=== PATIENT | female | born 1990 | race Caucasian/White ===

== ENCOUNTER 2018-05-17 16:21 | Emergency (ER) | payer OTHER ==
[~2018-05-17] VITALS: Ht 179.1 cm; Wt 90.7 kg
--- NOTE | 2018-05-17 18:14 | PHYS DOC ---
Past History Past Medical History: DVT, Ovarian Cyst, Other Past Surgical History: Appendectomy, Tonsillectomy, Other Smoking: Non-smoker Alcohol Use: None Drug Use: None Adult General Chief Complaint Chief Complaint: COUGH HPI HPI 28-year-old female presents with cough, congestion, postnasal drip for 1 week. She was seen by her PCP several days ago and diagnosed with a viral URI. 2 other family members are diagnosed patient presents today because she is not getting better. She is concerned that the cough is worsening. She denies fever or chills. She denies shortness of breath. The cough is nonproductive. Review of Systems Review of Systems Constitutional: Denies fever or chills [] Eyes: Denies change in visual acuity, redness, or eye pain [] HENT: Nasal congestion[] Respiratory: Cough without shortness of breath [] Cardiovascular: No additional information not addressed in HPI [] GI: Denies abdominal pain, nausea, vomiting, bloody stools or diarrhea [] : Denies dysuria or hematuria [] Musculoskeletal: Denies back pain or joint pain [] Integument: Denies rash or skin lesions [] Neurologic: Denies headache, focal weakness or sensory changes [] Endocrine: Denies polyuria or polydipsia [] All other systems were reviewed and found to be within normal limits, except as documented in this note. Allergies Allergies Allergies Coded Allergies Type Severity Reaction Last Updated Verified Erythromycin Base Allergy Severe Anaphylaxis 05/01/14 Yes Sulfa (Sulfonamide Antibiotics) Allergy Severe Anaphylaxis 05/01/14 Yes doxycycline Allergy Severe throat closes 05/01/14 Yes ibuprofen Allergy Severe throat closes 05/01/14 Yes drospirenone Allergy Mild rash 05/01/14 Yes ethinyl estradiol Allergy Mild rash 05/01/14 Yes hydrocodone bitartrate Allergy Mild N/V 05/01/14 Yes hydrocodone Allergy Unknown rash 05/01/14 Yes Physical Exam Physical Exam Constitutional: Well developed, well nourished, no acute distress, non-toxic appearance. [] HENT: Normocephalic, atraumatic, bilateral external ears normal, oropharynx moist, postnasal drip no oral exudates, nose congested[] Eyes: PERRLA, EOMI, conjunctiva normal, no discharge. [] Neck: Normal range of motion, no tenderness, supple, no stridor. [] Cardiovascular:Heart rate regular rhythm, no murmur [] Lungs & Thorax: Bilateral breath sounds clear to auscultation [] Abdomen: Bowel sounds normal, soft, no tenderness, no masses, no pulsatile masses. [] Skin: Warm, dry, no erythema, no rash. [] Back: No tenderness, no CVA tenderness. [] Extremities: No tenderness, no cyanosis, no clubbing, ROM intact, no edema. [] Neurologic: Alert and oriented X 3, normal motor function, normal sensory function, no focal deficits noted. [] Psychologic: Affect normal, judgement normal, mood normal. [] Current Patient Data Vital Signs Vital Signs Date Time Temp Pulse Resp B/P (MAP) Pulse Ox O2 Delivery O2 Flow Rate FiO2 05/17/18 16:50 98.2 79 18 98 Room Air EKG EKG [] Radiology/Procedures Radiology/Procedures [] Course & Med Decision Making Course & Med Decision Making Pertinent Labs and Imaging studies reviewed. (See chart for details) I do not see any evidence of a bacterial infection. The patient is still suffering from a viral illness that has to take its course. I informed her of this and the fact that there is no specific medication that will make it go away faster. She is stable for discharge at this time. [] Dragon Disclaimer Dragon Disclaimer This electronic medical record was generated, in whole or in part, using a voice recognition dictation system. Departure Departure: Referrals: PCP,JULIÁN (PCP) Scripts No Active Prescriptions or Reported Meds GRAYSON PIERCE DO May 17, 2018 18:14
[2018-05-17 18:15] VITALS: BP 126/76
== END 2018-05-17 18:27 | disposition home or self-care (01) ==
LOC: ER 16:21
DX: B34.9 Viral infection, unspecified (principal); Z86.718 Personal history of other venous thrombosis and embolism; Z88.1 Allergy status to other antibiotic agents; Z88.2 Allergy status to sulfonamides; Z88.6 Allergy status to analgesic agent; Z88.5 Allergy status to narcotic agent; Z88.8 Allergy status to other drugs, medicaments and biological substances
CPT/HCPCS: 99281

== ENCOUNTER 2018-06-19 16:17 | Emergency (ER) | payer OTHER ==
[~2018-06-19] VITALS: Ht 180.3 cm; Wt 90.7 kg
[2018-06-19] MEDS ORDERED: IV NORMAL SALINE 1,000ML 1,000 ML IV ONE (17:00)
[2018-06-19] MEDS ORDERED: ONDANSETRON PF 4 MG/2 ML VIAL. IV ONE (17:15)
--- NOTE | 2018-06-19 17:48 | PHYS DOC ---
Past History Past Medical History: DVT, Ovarian Cyst, Other Past Surgical History: Appendectomy, Tonsillectomy, Other Smoking: Non-smoker Alcohol Use: None Drug Use: None Adult General Chief Complaint Chief Complaint: NAUSEA/VOMITING/DIARRHEA HPI HPI 28-year-old female presents with one-day history of vomiting and diarrhea. Patient states she has had very watery stools every hour today. She had several episodes of vomiting. She felt "bad" yesterday, but was not having vomiting and diarrhea. Patient is unable to keep down any liquids or solids. She is unsure if she has had a fever. Review of Systems Review of Systems Constitutional: Denies fever or chills [] Eyes: Denies change in visual acuity, redness, or eye pain [] HENT: Denies nasal congestion or sore throat [] Respiratory: Denies cough or shortness of breath [] Cardiovascular: No additional information not addressed in HPI [] GI: abdominal pain, nausea, vomiting, diarrhea [] : Denies dysuria or hematuria [] Musculoskeletal: Denies back pain or joint pain [] Integument: Denies rash or skin lesions [] Neurologic: Denies headache, focal weakness or sensory changes [] Endocrine: Denies polyuria or polydipsia [] All other systems were reviewed and found to be within normal limits, except as documented in this note. Current Medications Current Medications Current Medications Medications (Trade) Dose Ordered Sig/Mackenzie Start Time Stop Time Status Last Admin Dose Admin Ondansetron HCl (Zofran) 4 mg 1X ONCE 06/19/18 17:15 06/19/18 17:16 DC Sodium Chloride 1,000 ml @ 1,000 mls/hr 1X ONCE 06/19/18 17:00 06/19/18 17:59 Allergies Allergies Allergies Coded Allergies Type Severity Reaction Last Updated Verified Erythromycin Base Allergy Severe Anaphylaxis 05/01/14 Yes Sulfa (Sulfonamide Antibiotics) Allergy Severe Anaphylaxis 05/01/14 Yes doxycycline Allergy Severe throat closes 05/01/14 Yes ibuprofen Allergy Severe throat closes 05/01/14 Yes drospirenone Allergy Mild rash 05/01/14 Yes ethinyl estradiol Allergy Mild rash 05/01/14 Yes hydrocodone bitartrate Allergy Mild N/V 05/01/14 Yes hydrocodone Allergy Unknown rash 05/01/14 Yes Physical Exam Physical Exam Constitutional: Well developed, obese, well nourished, no acute distress, non- toxic appearance. [] HENT: Normocephalic, atraumatic, bilateral external ears normal, oropharynx dry , no oral exudates, nose normal. [] Eyes: PERRLA, EOMI, conjunctiva normal, no discharge. [] Neck: Normal range of motion, no tenderness, supple, no stridor. [] Cardiovascular:Heart rate regular rhythm, no murmur [] Lungs & Thorax: Bilateral breath sounds clear to auscultation [] Abdomen: Bowel sounds normal, soft, no tenderness, no masses, no pulsatile masses. [] Skin: Warm, dry, no erythema, no rash. [] Back: No tenderness, no CVA tenderness. [] Extremities: No tenderness, no cyanosis, no clubbing, ROM intact, no edema. [] Neurologic: Alert and oriented X 3, normal motor function, normal sensory function, no focal deficits noted. [] Psychologic: Affect normal, judgement normal, mood normal. [] EKG EKG [] Radiology/Procedures Radiology/Procedures [] Course & Med Decision Making Course & Med Decision Making Pertinent Labs and Imaging studies reviewed. (See chart for details) The patient was given 1L normal saline and 4 mg of Zofran. The patient's labs are unremarkable. I believe the patient has viral gastroenteritis. I will discharge her with a prescription for Zofran ODT and advised that she use Imodium if the diarrhea continues. [] Dragon Disclaimer Dragon Disclaimer This electronic medical record was generated, in whole or in part, using a voice recognition dictation system. Departure Departure: Referrals: PCP,NO (PCP) Scripts No Active Prescriptions or Reported Meds GRAYSON PIERCE DO Jun 19, 2018 17:48
[2018-06-19 18:06] LABS: BASO % 0 % (0-3); EOS # 0.1 x10^3/uL (0.0-0.7); EOS % 1 % (0-3); HEMATOCRIT 41.5 % (36.0-47.0); HEMOGLOBIN 13.5 g/dL (12.0-15.5); LYMPH # 1.1 x10^3/uL (1.0-4.8); LYMPH % 10 % (24-48); MEAN CORPUSCULAR HEMOGLOBIN 27 pg (25-35); MEAN CORPUSCULAR HGB CONC 33 g/dL (31-37); MEAN CORPUSCULAR VOLUME 83 fL (79-100); MONO # 0.3 x10^3/uL (0.0-1.1); MONO % 3 % (0-9); NEUT # 9.3 x10^3uL (1.8-7.7); NEUT % 85 % (31-73); PLATELET COUNT 296 x10^3/uL (140-400); RED BLOOD COUNT 5.03 x10^6/uL (3.50-5.40); RED CELL DISTRIBUTION WIDTH 15.8 % (11.5-14.5); WHITE BLOOD COUNT 10.9 x10^3/uL (4.0-11.0)
[2018-06-19 18:23] LABS: ALBUMIN 3.6 g/dL (3.4-5.0); CALCIUM 8.2 mg/dL (8.5-10.1); CREATININE 0.7 mg/dL (0.6-1.0); GFR 99.6; POTASSIUM 3.9 mmol/L (3.5-5.1); TOTAL BILIRUBIN 0.4 mg/dL (0.2-1.0); TOTAL PROTEIN 7.1 g/dL (6.4-8.2)
[2018-06-19] MEDS ORDERED: ONDA4TAB12 PO (18:32)
[2018-06-19] MEDS ORDERED: DICYCLOMINE HCL 10 MG CAPSULE PO ONE (18:45)
[2018-06-19] MEDS ORDERED: traMADol 50 MG TABLET PO ONE (18:45)
[2018-06-19 19:23] VITALS: BP 108/57
== END 2018-06-19 19:15 | disposition home or self-care (01) ==
LOC: ER 16:17
DX: R11.2 Nausea with vomiting, unspecified (principal); R19.7 Diarrhea, unspecified; R10.9 Unspecified abdominal pain; Z86.718 Personal history of other venous thrombosis and embolism; Z90.89 Acquired absence of other organs; Z88.1 Allergy status to other antibiotic agents; Z88.2 Allergy status to sulfonamides; Z88.6 Allergy status to analgesic agent; Z88.5 Allergy status to narcotic agent; Z88.8 Allergy status to other drugs, medicaments and biological substances
CPT/HCPCS: 36415; 80053; 83690; 85025; 96361; 96374; 99283; J2405; J7030

== ENCOUNTER 2019-01-07 07:33 | Emergency (ER) | payer OTHER ==
[~2019-01-07] VITALS: Ht 180.3 cm; Wt 90.7 kg
[~2019-01-07 07:33] MED LIST: ONDA4TAB12 PO
[2019-01-07 07:44] VITALS: BP 150/85
[2019-01-07] MEDS ORDERED: traMADol 50 MG TABLET ONE (07:50)
--- NOTE | 2019-01-07 07:54 | PHYS DOC ---
Past History Past Medical History: DVT, Other Additional Past Medical Histor: Factor V Leiden Past Surgical History: Appendectomy, Cholecystectomy, Tonsillectomy, Tubal ligation Smoking: Non-smoker Alcohol Use: None Drug Use: None Adult General Chief Complaint Chief Complaint: LOWER EXT PAIN HPI HPI Patient is a 8-year-old female presents complaining of increasing left leg pain and swelling for approximately the past 12-18 hours. She had to change a tire as morning but was hurting before that happened, the tire change aggravated it. She also has a history of previous DVT and is intermittently taking her Lovenox. Her risk factors factor V Leiden. No smoking, no trauma. No recent surgeries. No control pills. She does have history of tubal ligation. No difficulty breathing. No relief with acetaminophen. Reports that the pain is severe.[] Review of Systems Review of Systems Constitutional: Denies fever or chills [] Eyes: Denies change in visual acuity, redness, or eye pain [] HENT: Denies nasal congestion or sore throat [] Respiratory: Denies cough or shortness of breath [] Cardiovascular: No chest pain or palpitations[] GI: Denies abdominal pain, nausea, vomiting, bloody stools or diarrhea [] : Denies dysuria or hematuria [] Musculoskeletal: Denies back pain, see history of present illness[] Integument: Denies rash or skin lesions [] Neurologic: Denies headache, focal weakness or sensory changes [] Endocrine: Denies polyuria or polydipsia [] All other systems were reviewed and found to be within normal limits, except as documented in this note. Allergies Allergies Allergies Coded Allergies Type Severity Reaction Last Updated Verified Erythromycin Base Allergy Severe Anaphylaxis 05/01/14 Yes Sulfa (Sulfonamide Antibiotics) Allergy Severe Anaphylaxis 05/01/14 Yes doxycycline Allergy Severe throat closes 05/01/14 Yes ibuprofen Allergy Severe throat closes 05/01/14 Yes drospirenone Allergy Mild rash 05/01/14 Yes ethinyl estradiol Allergy Mild rash 05/01/14 Yes hydrocodone bitartrate Allergy Mild N/V 05/01/14 Yes hydrocodone Allergy Unknown rash 05/01/14 Yes Physical Exam Physical Exam Constitutional: Well developed, well nourished, no acute distress, non-toxic appearance. [] HENT: Normocephalic, atraumatic, bilateral external ears normal, oropharynx moist, no oral exudates, nose normal. [] Eyes: PERRLA, EOMI, conjunctiva normal, no discharge. [] Neck: Normal range of motion, no tenderness, supple, no stridor. [] Cardiovascular:Heart rate regular rhythm, no murmur [] Lungs & Thorax: Bilateral breath sounds clear to auscultation [] Abdomen: Bowel sounds normal, soft, no tenderness, no masses, no pulsatile masses. [] Skin: Warm, dry, erythema consistent with a sunburn anterior portion of bilateral thighs and legs. This is tender to touch. It does andres. No petechiae. No rash. [] Back: No tenderness, no CVA tenderness. [] Extremities: No tenderness, no cyanosis, no clubbing, ROM intact, left lower extremity is generally swollen when compared to the right. There is diffuse tenderness that is not associated with the rash. Negative Homans sign. Patient is distally neurovascularly intact. She has normal gait. No pain with axial loading of the long bones. [] Neurologic: Alert and oriented X 3, normal motor function, normal sensory function, no focal deficits noted. [] Psychologic: Affect normal, judgement normal, mood normal. [] EKG EKG [] Radiology/Procedures Radiology/Procedures Ultrasound of her leg shows redundancy in the superficial femoral vein. There is a DVT within the deeper superficial femoral vein.[] Course & Med Decision Making Course & Med Decision Making Pertinent Labs and Imaging studies reviewed. (See chart for details) ED course: Patient arrived, was placed in bed, and tolerated exam well. She was transported to and from [facility] with any complications. After return of laboratory and imaging findings, these were discussed with the patient who voiced understanding. Since she has an occipital and which she is taking intermittently, reiterated the need to take it on her regular scheduled dose. Also directed patient to call her primary care team that is managing the DVT with her to discuss other treatment options to include oral medicines that may be easier for her to take. She voiced understanding. All questions were answered. She was discharged in improved condition. Medical decision making: Patient appears to have recurrence of her DVT. There is no evidence of a pulmonary embolism. No evidence of other vascular or neurologic compromise.[] Dragon Disclaimer Dragon Disclaimer This electronic medical record was generated, in whole or in part, using a voice recognition dictation system. Departure Departure: Impression: Primary Impression: Deep vein thrombosis (DVT) Disposition: HOME, SELF-CARE Condition: IMPROVED Referrals: PCPJULIÁN (PCP) Patient Instructions: Deep Vein Thrombosis Additional Instructions: Take your medication as prescribed. Follow up with the team that is managing your DVT, tomorrow. Let them know that she had recurrence of the DVT, and see if they can prescribe a medicine that is easier for you to manage. Return to the ER if worsening pain, difficulty breathing, or any other concerns. Scripts Tramadol Hcl (TRAMADOL HCL) 50 Mg Tablet 50 MG PO PRN Q6HRS PRN for PAIN, #20 TAB Prov: CAROL GAYTAN DO 01/07/19 Problem Qualifiers Primary Impression: Deep vein thrombosis (DVT) DVT location: lower extremity Affected thrombotic vein of extremity: other lower extremity vein Chronicity: unspecified Laterality: left Qualified Codes: I82.492 - Acute embolism and thrombosis of other specified deep vein of left lower extremity CAROL GAYTAN DO Jan 07, 2019 07:54
[2019-01-07] MEDS ORDERED: traMADol 50 MG TABLET PO ONE (08:00)
[2019-01-07 08:29] LABS: BASO # 0.1 x10^3/uL (0.0-0.2); BASO % 1 % (0-3); EOS # 0.2 x10^3/uL (0.0-0.7); EOS % 3 % (0-3); HEMATOCRIT 40.2 % (36.0-47.0); HEMOGLOBIN 13.1 g/dL (12.0-15.5); LYMPH # 2.1 x10^3/uL (1.0-4.8); LYMPH % 32 % (24-48); MEAN CORPUSCULAR HEMOGLOBIN 27 pg (25-35); MEAN CORPUSCULAR HGB CONC 33 g/dL (31-37); MEAN CORPUSCULAR VOLUME 84 fL (79-100); MONO # 0.5 x10^3/uL (0.0-1.1); MONO % 7 % (0-9); NEUT # 3.7 x10^3uL (1.8-7.7); NEUT % 57 % (31-73); PLATELET COUNT 282 x10^3/uL (140-400); RED BLOOD COUNT 4.81 x10^6/uL (3.50-5.40); RED CELL DISTRIBUTION WIDTH 14.7 % (11.5-14.5); WHITE BLOOD COUNT 6.5 x10^3/uL (4.0-11.0)
[2019-01-07 08:36] LABS: PREG TEST PT QUAL NEGATIVE (NEG)
[2019-01-07 08:45] LABS: ALBUMIN 3.6 g/dL (3.4-5.0); CALCIUM 8.9 mg/dL (8.5-10.1); CREATININE 0.7 mg/dL (0.6-1.0); GFR 99.6; POTASSIUM 4.1 mmol/L (3.5-5.1); TOTAL BILIRUBIN 0.5 mg/dL (0.2-1.0); TOTAL PROTEIN 7.1 g/dL (6.4-8.2)
[2019-01-07] MEDS ORDERED: TRAM50TA PO (09:17)
--- NOTE | 2019-01-07 09:44 | RAD ---
EXAM: Left lower extremity venous Doppler. HISTORY: Left lower extremity pain/swelling. COMPARISON: None. FINDINGS: Grayscale and Doppler analysis of the left lower extremity deep venous system was performed with graded compression and augmentation. The common femoral, greater saphenous, superficial femoral, popliteal and calf veins were assessed. There is occlusive thrombus within the left mid to distal superficial femoral vein. There is no deep venous thrombosis elsewhere on the left. The left greater saphenous vein is ectatic measuring 1.7 cm proximally. It is not thrombosed. IMPRESSION: 1. Occlusive thrombus in the left mid and distal superficial femoral vein. These findings were called to Dr. Velasquez by Jose Miguel Palomino on 01/07/2019 at 9:39 AM. Electronically signed by: Eitan Palomino MD (01/07/2019 9:41 AM) [facility]
== END 2019-01-07 09:00 | disposition home or self-care (01) ==
LOC: ER 07:33
DX: I82.412 Acute embolism and thrombosis of left femoral vein (principal); Z86.718 Personal history of other venous thrombosis and embolism; Z88.1 Allergy status to other antibiotic agents; Z88.2 Allergy status to sulfonamides; Z88.6 Allergy status to analgesic agent; Z88.5 Allergy status to narcotic agent
CPT/HCPCS: 36415; 80053; 84703; 85025; 85610; 85730; 93971; 99285-25

== ENCOUNTER → 2019-03-06 | Outpatient (CLI) | payer OTHER ==
[~2019-03-06] MED LIST changes: +IOHEXOL 240 MG/ML 50ML VIAL. PO ONE; +IOHEXOL 300 MG/ML 75 ML VIAL. IV ONE; +IOHEXOL 350 MG/ML 100 ML VIAL. IV ONE; +TRAM50TA PO
--- NOTE | 2019-03-06 14:09 | RAD ---
EXAM: CT Chest angiogram, CT Abdomen and Pelvis with IV contrast CLINICAL HISTORY: Evaluate for pulmonary embolus, dyspnea, lower extremity swelling, pain COMPARISON: None. TECHNIQUE: CT of the chest following the administration of intravenous contrast during the pulmonary arterial phase. Axial, coronal and sagittal reformatted images were generated including MIP images. Helical CT of the abdomen and pelvis was performed following the administration of intravenous contrast. Axial, coronal and sagittal reformatted images were generated. ---PQRS compliance statement - One or more of the following individualized dose reduction techniques were utilized for this study: 1. Automated exposure control 2. Adjustment of the mA and/or kV according to patient size 3. Use of iterative reconstruction technique--- FINDINGS: Chest: Diagnostic quality: Borderline suboptimal. Pulmonary emboli: No pulmonary emboli to the level of the proximal segmental branches. More peripheral vessels are not well assessed. Right heart strain: None Pulmonary arteries: Prominence of pulmonary arterial trunk may be seen with pulmonary arterial hypertension. Mild cardiomegaly. No pericardial effusion. No pleural effusion or pneumothorax. An enlarged prevascular lymph node measures 2.3 x 1.3 cm. No hilar or axillary lymphadenopathy by size criteria. No lobar consolidation. No suspicious lung nodule or mass is seen. Central airways are grossly patent. Abdomen and Pelvis: A 1.7 cm hypoattenuating left hepatic lobe lesion with peripheral nodular enhancement is suspicious for hemangioma. No additional liver lesion is definitively seen. Diffuse hepatic hypoattenuation may be seen with hepatic steatosis. Accounting for postcholecystectomy change, no biliary ductal dilatation. Spleen is unremarkable. Adrenal glands are normal. Pancreas is unremarkable. Symmetric nephrograms. No focal renal lesion. No hydronephrosis. Moderate colonic stool content is seen. No small or large bowel dilatation. No bowel obstruction. Appendix is not seen. There is a moderate-sized right hip joint effusion with cystic collection/ganglion extending into the bony pelvis abutting and resulting in mild mass effect on the right obturator internus. Extensive venous collaterals are seen within the subcutaneous tissues overlying the symphysis pubis and anterior pelvis. These appear to extend from the common femoral vein bilaterally. The right common iliac artery extends over the left common iliac vein resulting in significant narrowing of the left common iliac vein. Of note further evaluation is limited given phase of intravenous contrast. Bones: Left SI joint degenerative changes are seen. No aggressive osseous lesion. IMPRESSION: 1. Borderline suboptimal contrast bolus timing. Within these constraints, no pulmonary emboli to the level of the proximal segmental branches. More peripheral vessels are not well assessed. 2. Prominence of pulmonary arterial trunk may be seen with pulmonary arterial hypertension. 3. The right common iliac artery extends over the left common iliac vein resulting in narrowing of the left common iliac vein. 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 4. Cystic collection arising from the right hip joint extends into the bony pelvis abutting (possibly extending into) and resulting in mild mass effect on the right obturator internus. 5. Left hepatic hypodense lesion with peripheral nodular enhancement likely hemangioma. Electronically signed by: Soren Guillermo MD (03/06/2019 2:06 PM) [facility]
--- NOTE | 2019-03-06 16:09 | RAD ---
EXAM: US extremity nonvascular-bilateral DATE: 03/06/2019 12:00 AM COMPARISON: None INDICATION: Multiple bilateral upper extremity palpable abnormalities. TECHNIQUE: Longitudinal and transverse imaging with intermittent Doppler sampling completed with attention to the bilateral upper extremities FINDINGS/ IMPRESSION: 1. Multiple soft tissue nodules are seen bilaterally in the subcutaneous tissues, echogenic, likely lipomatous. 2. In the right upper extremity the largest measures 1.7 x 0.6 cm in the region of the anterior right wrist. 3. In the left upper extremity the largest measures approximately 0.8 x 0.4 cm. Electronically signed by: Soren Guillermo MD (03/06/2019 4:06 PM) [facility]
== END | disposition home or self-care (01) ==
LOC: CT 09:45
PROVIDERS: ATTEND Internal Medicine Hematology & Oncology
DX: M79.89 Other specified soft tissue disorders (principal); I51.7 Cardiomegaly; K76.89 Other specified diseases of liver; M25.451 Effusion, right hip; I87.8 Other specified disorders of veins; Z88.1 Allergy status to other antibiotic agents; D68.59 Other primary thrombophilia; I82.409 Acute embolism and thrombosis of unspecified deep veins of unspecified lower extremity; Z91.040 Latex allergy status; Z88.8 Allergy status to other drugs, medicaments and biological substances
CPT/HCPCS: 71275; 74177; 76882; Q9966; Q9967

== ENCOUNTER 2019-05-31 13:41 | Emergency (ER) | payer OTHER ==
[~2019-05-31] VITALS: Ht 180.3 cm; Wt 90.7 kg
[~2019-05-31 13:41] MED LIST changes: -IOHEXOL 240 MG/ML 50ML VIAL. PO ONE; -IOHEXOL 300 MG/ML 75 ML VIAL. IV ONE; -IOHEXOL 350 MG/ML 100 ML VIAL. IV ONE
--- NOTE | 2019-05-31 14:19 | PHYS DOC ---
Past History Past Medical History: DVT, Other Additional Past Medical Histor: Factor V Leiden Past Surgical History: Appendectomy, Cholecystectomy, Tonsillectomy, Tubal ligation Smoking: Non-smoker Alcohol Use: None Drug Use: None Adult General Chief Complaint Chief Complaint: HEADACHE HPI HPI 29-year-old female presents with headache. She has had a low-level headache for about a week. Today around lunchtime while she was aware, she began to have a lot more head pressure. She began to have photophobia and nausea. She has tried Excedrin and Tylenol but it is not helping at all. Patient has a history of recent DVT in the left lower leg. She is on Coumadin. She denies fever, chills, nasal congestion, cough, chest pain. Review of Systems Review of Systems Constitutional: Denies fever or chills [] Eyes: Denies change in visual acuity, redness, or eye pain [] HENT: Denies nasal congestion or sore throat [] Respiratory: Denies cough or shortness of breath [] Cardiovascular: No additional information not addressed in HPI [] GI: Denies abdominal pain, nausea, vomiting, bloody stools or diarrhea [] : Denies dysuria or hematuria [] Musculoskeletal: Denies back pain or joint pain [] Integument: Denies rash or skin lesions [] Neurologic: Headache. Denies focal weakness or sensory changes [] Endocrine: Denies polyuria or polydipsia [] All other systems were reviewed and found to be within normal limits, except as documented in this note. Allergies Allergies Allergies Coded Allergies Type Severity Reaction Last Updated Verified Sulfa (Sulfonamide Antibiotics) Allergy Severe Anaphylaxis 05/01/14 Yes doxycycline Allergy Severe throat closes 05/01/14 Yes erythromycin base Allergy Severe Anaphylaxis 05/01/14 Yes ibuprofen Allergy Severe throat closes 05/01/14 Yes drospirenone Allergy Mild rash 05/01/14 Yes ethinyl estradiol Allergy Mild rash 05/01/14 Yes hydrocodone bitartrate Allergy Mild N/V 05/01/14 Yes hydrocodone Allergy Unknown rash 05/01/14 Yes Physical Exam Physical Exam Constitutional: Well developed, well nourished, no acute distress, non-toxic appearance. [] HENT: Normocephalic, atraumatic, bilateral external ears normal, oropharynx moist, no oral exudates, nose normal. [] Eyes: PERRLA, EOMI, conjunctiva normal, no discharge. Photophobia[] Neck: Normal range of motion, no tenderness, supple, no stridor. [] Cardiovascular:Heart rate regular rhythm, no murmur [] Lungs & Thorax: Bilateral breath sounds clear to auscultation [] Abdomen: Bowel sounds normal, soft, no tenderness, no masses, no pulsatile masses. [] Skin: Warm, dry, no erythema, no rash. [] Back: No tenderness, no CVA tenderness. [] Extremities: No tenderness, no cyanosis, no clubbing, ROM intact, no edema. [] Neurologic: Alert and oriented X 3, normal motor function, normal sensory function, no focal deficits noted. [] Psychologic: Affect normal, judgement normal, mood normal. [] EKG EKG [] Radiology/Procedures Radiology/Procedures [] Impressions: EXAM: Head CT without contrast. HISTORY: Headache. TECHNIQUE: Computed tomographic images of the head were obtained without contrast. *One or more of the following individualized dose reduction techniques were utilized for this examination: 1. Automated exposure control. 2. Adjustment of the mA and/or kV according to patient size. 3. Use of iterative reconstruction technique. COMPARISON: None. FINDINGS: There is no acute or subacute extra-axial or intraparenchymal hemorrhage. There is no mass effect or midline shift. There is no hydrocephalus. The shah-white matter differentiation pattern is intact. The visualized portions of the orbits, paranasal sinuses and mastoid air cells are unremarkable. No suspicious calvarial lesion is seen. IMPRESSION: No acute intracranial findings. Electronically signed by: Nhung Hernandez MD (05/31/2019 2:20 PM) [place] [id number] DICTATED AND SIGNED BY: NHUNG HERNANDEZ MD DATE: 05/31/19 2403 CC: GRAYSON PIERCE DO; SPRING MASON MD ~ Course & Med Decision Making Course & Med Decision Making Pertinent Labs and Imaging studies reviewed. (See chart for details) Her head CT is negative for acute findings. Patient was difficult to start an IV on. 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 I believe this is reasonable for the patient. She will return if she must I will later time. She is stable for discharge at this time. [] Dragon Disclaimer Dragon Disclaimer This electronic medical record was generated, in whole or in part, using a voice recognition dictation system. Departure Departure: Impression: Primary Impression: Headache Disposition: 01 HOME, SELF-CARE Condition: STABLE Referrals: SPRING MASON MD (PCP) Patient Instructions: General Headache Without Cause, [id number] GRAYSON PIERCE DO May 31, 2019 14:19
--- NOTE | 2019-05-31 14:23 | RAD ---
EXAM: Head CT without contrast. HISTORY: Headache. TECHNIQUE: Computed tomographic images of the head were obtained without contrast. *One or more of the following individualized dose reduction techniques were utilized for this examination: 1. Automated exposure control. 2. Adjustment of the mA and/or kV according to patient size. 3. Use of iterative reconstruction technique. COMPARISON: None. FINDINGS: There is no acute or subacute extra-axial or intraparenchymal hemorrhage. There is no mass effect or midline shift. There is no hydrocephalus. The shah-white matter differentiation pattern is intact. The visualized portions of the orbits, paranasal sinuses and mastoid air cells are unremarkable. No suspicious calvarial lesion is seen. IMPRESSION: No acute intracranial findings. Electronically signed by: Nhung Nguyen MD (05/31/2019 2:20 PM) [place] [id number]
[2019-05-31 14:51] VITALS: BP 115/60
[2019-05-31] MEDS ORDERED: ONDA4TAB12 PO (15:19)
[2019-05-31 15:28] LABS: BASO # 0.1 x10^3/uL (0.0-0.2); BASO % 1 % (0-3); EOS # 0.1 x10^3/uL (0.0-0.7); EOS % 1 % (0-3); HEMATOCRIT 37.8 % (36.0-47.0); HEMOGLOBIN 12.1 g/dL (12.0-15.5); LYMPH % 28 % (24-48); MEAN CORPUSCULAR HEMOGLOBIN 27 pg (25-35); MEAN CORPUSCULAR HGB CONC 32 g/dL (31-37); MEAN CORPUSCULAR VOLUME 85 fL (79-100); MONO # 0.8 x10^3/uL (0.0-1.1); MONO % 7 % (0-9); NEUT # 6.8 x10^3uL (1.8-7.7); NEUT % 63 % (31-73); PLATELET COUNT 280 x10^3/uL (140-400); RED BLOOD COUNT 4.43 x10^6/uL (3.50-5.40); RED CELL DISTRIBUTION WIDTH 14.7 % (11.5-14.5); WHITE BLOOD COUNT 10.8 x10^3/uL (4.0-11.0)
[2019-05-31 15:44] LABS: ALBUMIN 3.6 g/dL (3.4-5.0); ALBUMIN/GLOBULIN RATIO 1.1 (1.0-1.7); CALCIUM 8.5 mg/dL (8.5-10.1); CREATININE 0.7 mg/dL (0.6-1.0); GFR 98.9; TOTAL BILIRUBIN 0.1 mg/dL (0.2-1.0)
== END 2019-05-31 15:18 | disposition home or self-care (01) ==
LOC: ER 13:41
DX: R51 Headache (principal); R11.0 Nausea; H53.143 Visual discomfort, bilateral; Z86.718 Personal history of other venous thrombosis and embolism; Z88.2 Allergy status to sulfonamides; Z88.1 Allergy status to other antibiotic agents; Z88.6 Allergy status to analgesic agent; Z88.5 Allergy status to narcotic agent; Z88.8 Allergy status to other drugs, medicaments and biological substances
CPT/HCPCS: 36415; 70450; 80053; 85025; 85610; 85730; 99284; 99285

== ENCOUNTER → 2019-06-29 | Outpatient (CLI) | payer OTHER ==
[2019-05-31 14:51] VITALS: BP 115/60
== END | disposition home or self-care (01) ==
LOC: LAB 12:35
PROVIDERS: ATTEND Internal Medicine Hematology & Oncology
DX: Z86.718 Personal history of other venous thrombosis and embolism (principal)
CPT/HCPCS: 36415; 85610

== ENCOUNTER → 2019-07-02 | Outpatient (CLI) | payer OTHER | END | disposition home or self-care (01) | LOC: LAB 12:19 | PROVIDERS: ATTEND Internal Medicine Hematology & Oncology | DX: I82.409 Acute embolism and thrombosis of unspecified deep veins of unspecified lower extremity (principal); D68.51 Activated protein C resistance | CPT/HCPCS: 36415; 85610 ==

== ENCOUNTER → 2019-07-12 | Outpatient (CLI) | payer OTHER | END | disposition home or self-care (01) | LOC: LAB 12:52 | PROVIDERS: ATTEND Internal Medicine Hematology & Oncology | DX: I82.409 Acute embolism and thrombosis of unspecified deep veins of unspecified lower extremity (principal); D68.51 Activated protein C resistance | CPT/HCPCS: 36415; 85610 ==

== ENCOUNTER 2020-01-20 17:02 | Emergency (ER) | payer OTHER ==
[~2020-01-20] VITALS: Ht 180.3 cm; Wt 100.5 kg
[2020-01-20 17:12] VITALS: BP 117/75
[2020-01-20] MEDS ORDERED: DEXAMETHASONE 4 MG TABLET PO ONE (17:30)
[2020-01-20] MEDS ORDERED: PRED20TA PO (17:35)
[2020-01-20] MEDS ORDERED: AMOX1TAB61 PO (17:35)
--- NOTE | 2020-01-20 17:36 | PHYS DOC ---
Past History Past Medical History: DVT Additional Past Medical Histor: Factor V Leiden, PCOS, may-thurner syndrome Past Surgical History: No Surgical History Smoking: Non-smoker Alcohol Use: None Drug Use: None General Adult EDM: Chief Complaint: MULTIPLE COMPLAINTS HPI: HPI: Patient is a [age] year old [sex] who presents with [] Review of Systems: Review of Systems: Constitutional: Denies fever or chills Eyes: Denies change in visual acuity HENT: Denies nasal congestion or sore throat Respiratory: Denies cough or shortness of breath Cardiovascular: Denies chest pain or edema GI: Denies abdominal pain, nausea, vomiting, bloody stools or diarrhea : Denies dysuria Musculoskeletal: Denies back pain or joint pain Integument: Denies rash Neurologic: Denies headache, focal weakness or sensory changes Endocrine: Denies polyuria or polydipsia Lymphatic: Denies swollen glands Psychiatric: Denies depression or anxiety Heart Score: Risk Factors: Risk Factors: DM, Current or recent (<one month) smoker, HTN, HLP, family history of CAD, obesity. Risk Scores: Score 0 - 3: 2.5% MACE over next 6 weeks - Discharge Home Score 4 - 6: 20.3% MACE over next 6 weeks - Admit for Clinical Observation Score 7 - 10: 72.7% MACE over next 6 weeks - Early Invasive Strategies Current Medications: Current Meds: Current Medications Medications (Trade) Dose Ordered Sig/Mackenzie Start Time Stop Time Status Last Admin Dose Admin Dexamethasone (Decadron) 10 mg 1X ONCE 01/20/20 17:30 01/20/20 17:31 Allergies: Allergies: Allergies Coded Allergies Type Severity Reaction Last Updated Verified Sulfa (Sulfonamide Antibiotics) Allergy Severe Anaphylaxis 05/01/14 Yes doxycycline Allergy Severe throat closes 05/01/14 Yes erythromycin base Allergy Severe Anaphylaxis 05/01/14 Yes ibuprofen Allergy Severe throat closes 05/01/14 Yes drospirenone Allergy Mild rash 05/01/14 Yes ethinyl estradiol Allergy Mild rash 05/01/14 Yes hydrocodone bitartrate Allergy Mild N/V 05/01/14 Yes hydrocodone Allergy Unknown rash 05/01/14 Yes Physical Exam: PE: Constitutional: Well developed, well nourished, no acute distress, non-toxic appearance. [] HENT: Normocephalic, atraumatic, bilateral external ears normal, oropharynx moist, no oral exudates, nose normal. [] Eyes: PERRLA, EOMI, conjunctiva normal, no discharge. [] Neck: Normal range of motion, no tenderness, supple, no stridor. [] Cardiovascular:Heart rate regular rhythm, no murmur [] Lungs & Thorax: Bilateral breath sounds clear to auscultation [] Abdomen: Bowel sounds normal, soft, no tenderness, no masses, no pulsatile masses. [] Skin: Warm, dry, no erythema, no rash. [] Back: No tenderness, no CVA tenderness. [] Extremities: No tenderness, no cyanosis, no clubbing, ROM intact, no edema. [] Neurologic: Alert and oriented X 3, normal motor function, normal sensory function, no focal deficits noted. [] Psychologic: Affect normal, judgement normal, mood normal. [] Current Patient Data: Vital Signs: Vital Signs Date Time Temp Pulse Resp B/P (MAP) Pulse Ox O2 Delivery O2 Flow Rate FiO2 01/20/20 17:12 98.6 80 26 117/75 (89) 96 EKG: EKG: [] Radiology/Procedures: Radiology/Procedures: [] Course & Med Decision Making: Course & Med Decision Making Pertinent Labs and Imaging studies reviewed. (See chart for details) [] Dragon Disclaimer: Dragon Disclaimer: This electronic medical record was generated, in whole or in part, using a voice recognition dictation system. Departure Departure: Impression: Primary Impression: Sinus headache Additional Impression: Seasonal allergies Disposition: 01 HOME/RESIDENCE PRIOR TO ADM Condition: STABLE Referrals: SPRING MASON MD (PCP) Patient Instructions: Headache, FAQs, Sinusitis, [id number] Additional Instructions: Hold antibiotics for 48 hours. If symptoms worsen or for fever > 100.3 F after 48 hours then start antibiotics as prescribed. Scripts Amoxicillin/Potassium Clav (AUGMENTIN 875-125 TABLET) 1 Each Tablet 1 TAB PO BID for Sinusitis for 7 Days, #14 TAB 0 Refills Prov: LYNN POLLARD DO 01/20/20 Prednisone (PREDNISONE) 20 Mg Tablet 2 TAB PO DAILY for Sinusitis, #8 TAB Prov: LYNN POLLARD DO 01/20/20 Justification of Admission: Justification of Admission: Justification of Admission Dx: N/A LYNN POLLARD DO Jan 20, 2020 17:36
--- NOTE | 2020-01-20 17:56 | RAD ---
Exam: Chest 2 views INDICATION: Cough TECHNIQUE: Frontal and lateral views the chest Comparisons: None FINDINGS: The cardiomediastinal silhouette and pulmonary vessels are within normal limits. The lung and pleural spaces are clear. IMPRESSION: No acute cardiopulmonary process. Electronically signed by: Parviz Madrid MD (01/20/2020 5:54 PM) [id number]
== END 2020-01-20 17:58 | disposition home or self-care (01) ==
LOC: ER 17:02
DX: J30.2 Other seasonal allergic rhinitis (principal); R51 Headache; H92.03 Otalgia, bilateral; Z86.718 Personal history of other venous thrombosis and embolism; E28.2 Polycystic ovarian syndrome; Z88.2 Allergy status to sulfonamides; Z88.1 Allergy status to other antibiotic agents; Z88.5 Allergy status to narcotic agent; Z88.8 Allergy status to other drugs, medicaments and biological substances; Z88.6 Allergy status to analgesic agent
CPT/HCPCS: 71046; 99283

== ENCOUNTER 2021-04-17 18:15 | Emergency (ER) | payer OTHER ==
[~2021-04-17] VITALS: Ht 180.3 cm; Wt 111.8 kg
[~2021-04-17 18:15] MED LIST changes: +AMOX1TAB61 PO; +PRED20TA PO
[2021-04-17] MEDS ORDERED: IV NORMAL SALINE 1,000ML 1,000 ML IV ONE (18:45)
[2021-04-17 19:14] LABS: BASO # 0.1 x10^3/uL (0.0-0.2); BASO % 1 % (0-3); EOS # 0.2 x10^3/uL (0.0-0.7); EOS % 2 % (0-3); HEMATOCRIT 40.1 % (36.0-47.0); HEMOGLOBIN 12.9 g/dL (12.0-15.5); LYMPH # 2.9 x10^3/uL (1.0-4.8); LYMPH % 26 % (24-48); MEAN CORPUSCULAR HEMOGLOBIN 29 pg (25-35); MEAN CORPUSCULAR HGB CONC 32 g/dL (31-37); MEAN CORPUSCULAR VOLUME 89 fL (79-100); MONO # 0.6 x10^3/uL (0.0-1.1); MONO % 5 % (0-9); NEUT # 7.5 x10^3uL (1.8-7.7); NEUT % 66 % (31-73); PLATELET COUNT 286 x10^3/uL (140-400); RED BLOOD COUNT 4.51 x10^6/uL (3.50-5.40); RED CELL DISTRIBUTION WIDTH 14.6 % (11.5-14.5); WHITE BLOOD COUNT 11.4 x10^3/uL (4.0-11.0)
[2021-04-17 19:21] LABS: CALCIUM 8.7 mg/dL (8.5-10.1); CREATININE 0.6 mg/dL (0.6-1.0); GFR 116.6; POTASSIUM 4.2 mmol/L (3.5-5.1)
[2021-04-17 19:24] LABS: ALBUMIN 3.6 g/dL (3.4-5.0); ALBUMIN/GLOBULIN RATIO 1.2 (1.0-1.7); MAGNESIUM 2.1 mg/dL (1.8-2.4); TOTAL BILIRUBIN 0.2 mg/dL (0.2-1.0); TOTAL PROTEIN 6.6 g/dL (6.4-8.2)
--- NOTE | 2021-04-17 20:23 | RAD ---
Transvaginal ultrasound pelvis HISTORY: Dysmenorrhea Transvaginal ultrasound examination performed and multiple static images were obtained. The uterus appears normal. The endometrium measures 5 mm in thickness. The ovaries appear normal with normal blood flow. The right ovary measures 2.7 x 3.5 x 2.6 cm. The le ft ovary measures 3.6 x 3.3 x 2.2 centers. There is a nabothian cyst present. There is no free fluid. IMPRESSION: Negative examination. Electronically signed by: Spencer Will III, MD (04/17/2021 8:21 PM) [facility]
--- NOTE | 2021-04-17 20:38 | PHYS DOC ---
Past History Past Medical History: DVT Additional Past Medical Histor: Factor V Leiden, PCOS, may-thurner syndrome, ST Past Surgical History: Appendectomy, Tonsillectomy, Tubal ligation Smoking: Non-smoker Alcohol Use: None Drug Use: None General Adult EDM: Chief Complaint: VAGINAL BLEEDING HPI: HPI: Patient is a [age] year old [sex] who presents with [] Review of Systems: Review of Systems: Constitutional: Denies fever or chills Eyes: Denies redness or eye pain HENT: Denies nasal congestion or sore throat Respiratory: Denies cough or shortness of breath Cardiovascular: Denies chest pain or palpitations GI: Denies abdominal pain, nausea, or vomiting : Denies dysuria or hematuria Musculoskeletal: Denies back pain or joint pain Integument: Denies rash or skin lesions Neurologic: Denies headache, focal weakness or sensory changes Complete systems were reviewed and found to be within normal limits, except as documented in this note. Current Medications: Current Meds: Current Medications Medications (Trade) Dose Ordered Sig/Mackenzie Start Time Stop Time Status Last Admin Dose Admin Sodium Chloride 1,000 ml @ 1,000 mls/hr 1X ONCE 04/17/21 18:45 04/17/21 19:44 DC 04/17/21 18:45 1,000 MLS/HR Allergies: Allergies: Allergies Coded Allergies Type Severity Reaction Last Updated Verified Sulfa (Sulfonamide Antibiotics) Allergy Severe Anaphylaxis 04/17/21 Yes doxycycline Allergy Severe throat closes 04/17/21 Yes erythromycin base Allergy Severe Anaphylaxis 04/17/21 Yes ibuprofen Allergy Severe throat closes 04/17/21 Yes drospirenone Allergy Mild rash 04/17/21 Yes ethinyl estradiol Allergy Mild rash 04/17/21 Yes hydrocodone bitartrate Allergy Mild N/V 04/17/21 Yes hydrocodone Allergy Unknown rash 04/17/21 Yes Physical Exam: PE: Constitutional: Well developed, well nourished, no acute distress, non-toxic appearance HENT: Normocephalic, atraumatic Eyes: PERRL, EOMI, conjunctiva normal, no discharge Neck: Normal range of motion, no tenderness, supple Lungs & Thorax: No respiratory distress, equal chest rise and fall Abdomen: Soft, no tenderness Skin: Warm, dry, no erythema, no rash Back: No tenderness, no CVA tenderness Extremities: No tenderness, ROM intact, no edema Neurologic: Alert and oriented X 3, normal motor function, normal sensory function, no focal deficits noted Psychologic: Affect normal, judgment normal Current Patient Data: Labs: Laboratory Tests Test 04/17/21 18:57 White Blood Count 11.4 x10^3/uL (4.0-11.0) H Red Blood Count 4.51 x10^6/uL (3.50-5.40) Hemoglobin 12.9 g/dL (12.0-15.5) Hematocrit 40.1 % (36.0-47.0) Mean Corpuscular Volume 89 fL (79-100) Mean Corpuscular Hemoglobin 29 pg (25-35) Mean Corpuscular Hemoglobin Concent 32 g/dL (31-37) Red Cell Distribution Width 14.6 % (11.5-14.5) H Platelet Count 286 x10^3/uL (140-400) Neutrophils (%) (Auto) 66 % (31-73) Lymphocytes (%) (Auto) 26 % (24-48) Monocytes (%) (Auto) 5 % (0-9) Eosinophils (%) (Auto) 2 % (0-3) Basophils (%) (Auto) 1 % (0-3) Neutrophils # (Auto) 7.5 x10^3uL (1.8-7.7) Lymphocytes # (Auto) 2.9 x10^3/uL (1.0-4.8) Monocytes # (Auto) 0.6 x10^3/uL (0.0-1.1) Eosinophils # (Auto) 0.2 x10^3/uL (0.0-0.7) Basophils # (Auto) 0.1 x10^3/uL (0.0-0.2) Sodium Level 139 mmol/L (136-145) Potassium Level 4.2 mmol/L (3.5-5.1) Chloride Level 104 mmol/L (98-107) Carbon Dioxide Level 24 mmol/L (21-32) Anion Gap 11 (6-14) Blood Urea Nitrogen 10 mg/dL (7-20) Creatinine 0.6 mg/dL (0.6-1.0) Estimated GFR (Cockcroft-Gault) 116.6 BUN/Creatinine Ratio 17 (6-20) Glucose Level 118 mg/dL (70-99) H Calcium Level 8.7 mg/dL (8.5-10.1) Magnesium Level 2.1 mg/dL (1.8-2.4) Total Bilirubin 0.2 mg/dL (0.2-1.0) Aspartate Amino Transferase (AST) 21 U/L (15-37) Alanine Aminotransferase (ALT) 25 U/L (14-59) Alkaline Phosphatase 74 U/L (46-116) Total Protein 6.6 g/dL (6.4-8.2) Albumin 3.6 g/dL (3.4-5.0) Albumin/Globulin Ratio 1.2 (1.0-1.7) Vital Signs: Vital Signs Date Time Temp Pulse Resp B/P (MAP) Pulse Ox O2 Delivery O2 Flow Rate FiO2 04/17/21 18:23 98.7 81 24 136/70 (92) 99 Room Air EKG: EKG: [] Radiology/Procedures: Radiology/Procedures: PROCEDURE: US PELVIS W/TV Transvaginal ultrasound pelvis HISTORY: Dysmenorrhea Transvaginal ultrasound examination performed and multiple static images were obtained. The uterus appears normal. The endometrium measures 5 mm in thickness. The ovaries appear normal with normal blood flow. The right ovary measures 2.7 x 3.5 x 2.6 cm. The left ovary measures 3.6 x 3.3 x 2.2 centers. There is a nabothian cyst present. There is no free fluid. IMPRESSION: Negative examination. Electronically signed by: Spencer Will III, MD (04/17/2021 8:21 PM) [facility] Heart Score: C/O Chest Pain: N/A Course & Med Decision Making: Course & Med Decision Making Pertinent Labs and Imaging studies reviewed. (See chart for details) Patient stable for discharge with outpatient follow-up with PCP/[employer]. Discussed findings and plan with patient, who acknowledges understanding and agreement. Sirena Disclaimer: Sirena Disclaimer: This electronic medical record was generated, in whole or in part, using a voice recognition dictation system. Departure Departure: Impression: Primary Impression: Dysmenorrhea Disposition: HOME / SELF CARE / HOMELESS Condition: STABLE Referrals: SPRING MASON MD (PCP) Patient Instructions: Dysmenorrhea, [id number] LYNN POLLARD DO Apr 17, 2021 20:38
[2021-04-17 20:40] VITALS: BP 132/74
[2021-04-17 20:42] LABS: BILIRUBIN,URINE NEG (NEG); CLARITY,URINE CLOUDY; COLOR,URINE YELLOW; GLUCOSE,URINE NEG (NEG); NITRITE,URINE POS (NEG); UROBILINOGEN,URINE 0.2 mg/dL (0.2 mg/dL)
[2021-04-17 20:43] LABS: AMORPHOUS SEDIMENT,UR PRESENT /HPF; BACTERIA,URINE FEW /HPF (0-FEW); RBC,URINE 20-40 /HPF (0-2); SQUAMOUS EPITHELIAL CELL,UR MOD /LPF
[2021-04-20 19:08] LABS: CHLAMYDIA PROBE Negative (Negative)
== END 2021-04-17 20:50 | disposition home or self-care (01) ==
LOC: ER 18:15
DX: N94.6 Dysmenorrhea, unspecified (principal); Z88.1 Allergy status to other antibiotic agents; Z88.6 Allergy status to analgesic agent; Z98.51 Tubal ligation status
CPT/HCPCS: 76830; 76856; 80053; 81001; 83735; 85025; 87086; 87491; 87591; 96360; 96361; 99284; J7030; Q0111

== ENCOUNTER 2021-10-26 22:02 | Emergency (ER) | payer OTHER ==
[~2021-10-26] VITALS: Ht 180.3 cm; Wt 111.8 kg
--- NOTE | 2021-10-26 22:25 | PHYS DOC ---
Past History Past Medical History: DVT Additional Past Medical Histor: Factor V Leiden, PCOS, may-thurner syndrome, ST Past Surgical History: Appendectomy, Tonsillectomy, Tubal ligation Smoking: Non-smoker Alcohol Use: None Drug Use: None General Adult EDM: Chief Complaint: COUGH HPI: HPI: 31-year-old female presents with 5-day history of cough, congestion, fever. Patient decided come in today because she just keeps coughing. She had a fever that she believes broke around 1 AM today. She does not have a thermometer at home so she is not sure how high it got. The patient is not vaccinated against COVID-19 due to "a blood clotting disorder". She is on an anticoagulant. She has not had COVID-19 as far she knows. Patient denies significant sore throat, chest pain, shortness of breath. Review of Systems: Review of Systems: Constitutional: Chills, body aches, fatigue. Eyes: Denies change in visual acuity HENT: Denies nasal congestion or sore throat Respiratory: Cough without shortness of breath Cardiovascular: Denies chest pain or edema GI: Denies abdominal pain, nausea, vomiting, bloody stools or diarrhea : Dysuria Musculoskeletal: Denies back pain or joint pain Integument: Denies rash Neurologic: Denies headache, focal weakness or sensory changes Endocrine: Denies polyuria or polydipsia Lymphatic: Denies swollen glands Psychiatric: Denies depression or anxiety Allergies: Allergies: Allergies Coded Allergies Type Severity Reaction Last Updated Verified Sulfa (Sulfonamide Antibiotics) Allergy Severe Anaphylaxis 04/17/21 Yes doxycycline Allergy Severe throat closes 04/17/21 Yes erythromycin base Allergy Severe Anaphylaxis 04/17/21 Yes ibuprofen Allergy Severe throat closes 04/17/21 Yes drospirenone Allergy Mild rash 04/17/21 Yes ethinyl estradiol Allergy Mild rash 04/17/21 Yes hydrocodone bitartrate Allergy Mild N/V 04/17/21 Yes hydrocodone Allergy Unknown rash 04/17/21 Yes Physical Exam: PE: Constitutional: Well developed, well nourished, no acute distress, non-toxic appearance. [] HENT: Normocephalic, atraumatic, bilateral external ears normal, oropharynx moist, no oral exudates, nose normal. [] Eyes: PERRLA, EOMI, conjunctiva normal, no discharge. [] Neck: Normal range of motion, no tenderness, supple, no stridor. [] Cardiovascular: Heart rate regular rhythm, no murmur [] Lungs & Thorax: Coughing. Bilateral breath sounds clear to auscultation [] Abdomen: Bowel sounds normal, soft, no tenderness, no masses, no pulsatile masses. [] Skin: Warm, dry, no erythema, no rash. [] Back: No tenderness, no CVA tenderness. [] Extremities: No tenderness, no cyanosis, no clubbing, ROM intact, no edema. [] Neurologic: Alert and oriented X 3, normal motor function, normal sensory function, no focal deficits noted. [] Psychologic: Affect normal, judgement normal, mood normal. [] EKG: EKG: [] Radiology/Procedures: Radiology/Procedures: [] Impressions: EXAM: XR CHEST 1V 10/26/2021 10:34 PM CLINICAL INDICATION: Cough COMPARISON: Chest radiograph 01/20/2020 TECHNIQUE: PA view of the chest FINDINGS: The heart and mediastinum are normal. Lungs are well-expanded and clear. No consolidation, pleural effusion, or pneumothorax. Pulmonary vascularity is normal. The thoracic skeleton is intact. IMPRESSION: Normal chest radiograph. Electronically signed by: Anika Pena MD (10/26/2021 11:19 PM) [facility] DICTATED AND SIGNED BY: ANIKA PENA MD DATE: 10/26/21 2319 CC: GRAYSON PIERCE DO; PCP,NO ~ Heart Score: C/O Chest Pain: N/A Risk Factors: Risk Factors: DM, Current or recent (<one month) smoker, HTN, HLP, family history of CAD, obesity. Risk Scores: Score 0 - 3: 2.5% MACE over next 6 weeks - Discharge Home Score 4 - 6: 20.3% MACE over next 6 weeks - Admit for Clinical Observation Score 7 - 10: 72.7% MACE over next 6 weeks - Early Invasive Strategies Course & Med Decision Making: Course & Med Decision Making Pertinent Labs and Imaging studies reviewed. (See chart for details) The patient's chest x-ray is negative for acute findings. Negative for influenza or Covid. Her urinalysis is significant for UTI. I will treat her with Macrobid for 5 days. With the first dose the emergency room. She is stable for discharge at this time. [] Lexion Disclaimer: Dragon Disclaimer: This electronic medical record was generated, in whole or in part, using a voice recognition dictation system. Departure Departure: Impression: Primary Impression: Urinary tract infection Additional Impression: Viral URI with cough Disposition: HOME / SELF CARE / HOMELESS Condition: STABLE Referrals: PCP,NO (PCP) Patient Instructions: Urinary Tract Infection, [id number] Scripts Nitrofurantoin Monohyd/M-Cryst (MACROBID 100 MG CAPSULE) 100 Mg Capsule 1 CAP PO BID for UTI for 5 Days, #10 CAP 0 Refills Prov: GRAYSON PIERCE DO 10/26/21 GRAYSON PIERCE DO Oct 26, 2021 22:25
[2021-10-26 23:03] LABS: U PREG PATIENT NEGATIVE (NEG)
[2021-10-26 23:05] LABS: BACTERIA,URINE MANY /HPF (0-FEW); CLARITY,URINE CLOUDY; COLOR,URINE YELLOW; GLUCOSE,URINE NEG (NEG); NITRITE,URINE POS (NEG); RBC,URINE OCC /HPF (0-2); SQUAMOUS EPITHELIAL CELL,UR FEW /LPF
[2021-10-26 23:07] LABS: INFLUENZA A PATIENT NEGATIVE (NEGATIVE); INFLUENZA B PATIENT NEGATIVE (NEGATIVE)
--- NOTE | 2021-10-26 23:22 | RAD ---
EXAM: XR CHEST 1V 10/26/2021 10:34 PM CLINICAL INDICATION: Cough COMPARISON: Chest radiograph 01/20/2020 TECHNIQUE: PA view of the chest FINDINGS: The heart and mediastinum are normal. Lungs are well-expanded and clear. No consolidatio n, pleural effusion, or pneumothorax. Pulmonary vascularity is normal. The thoracic skeleton is int act. IMPRESSION: Normal chest radiograph. Electronically signed by: Anika Pena MD (10/26/2021 11:19 PM) [facility]
[2021-10-26] MEDS ORDERED: NITR100C62 PO (23:29)
[2021-10-26] MEDS ORDERED: NITROFURANTOIN MONOHYD/M-CRYST 100 MG CAPSULE. PO ONE (23:30)
[2021-10-26 23:48] VITALS: BP 114/72
== END 2021-10-26 23:52 | disposition home or self-care (01) ==
LOC: ER 22:02
DX: N39.0 Urinary tract infection, site not specified (principal); J06.9 Acute upper respiratory infection, unspecified; Z20.822 Contact with and (suspected) exposure to COVID-19; Z86.718 Personal history of other venous thrombosis and embolism
CPT/HCPCS: 71045; 81001; 81025; 87086; 87428; 99284